=== PATIENT | female | born 1960 | race Two or more races ===

== ENCOUNTER 2020-08-29 12:42 | Outpatient (CLI) | payer OTHER ==
[~2020-08-29 12:42] MED LIST: DIOVAN40 MG; GRALISE600 MG; KLONOPIN 2MG; OMEGA 3 500 SO1 EACH; PRILOSEC10 MG; SYNTHROID200 MCG; ZANTAC150 MG
== END 2020-08-29 12:48 | disposition home or self-care (01) ==
LOC: SONOGRAMA 12:42
PROVIDERS: ATTEND Pathology Anatomic Pathology & Clinical Pathology
DX: R59.0 Localized enlarged lymph nodes (principal)